=== PATIENT | female | born 1985 | race Caucasian/White ===

== ENCOUNTER → 2016-10-12 | Outpatient (CLI) | payer OTHER ==
--- NOTE | 2016-10-12 13:16 | REP ---
Soft-tissue ultrasound left lower extremity: History: Lump in the left carr at mid calf level with pain and bruising. Findings: Scanning in the area of palpable lump over the left carr demonstrates a 1.2 x 1.0 x 0.5 cm hypoechoic area just superficial to the tibia. There is no Doppler evidence of internal flow. Impression: Nonspecific hypoechoic 1.2 cm nodule anterior to the tibia. This is nonspecific. It may be hematoma, fat necrosis, or other lesion. Clinical followup suggested. Signed by Michael Hoover MD 10/12/2016 01:19 P
== END ==
LOC: M LRY 11:22
PROVIDERS: ATTEND Nurse Practitioner Family
DX: R22.42 Localized swelling, mass and lump, left lower limb (principal)

== ENCOUNTER → 2016-10-13 | Outpatient (REF) | payer OTHER, MEDICAID ==
[2016-10-13 14:11] LABS: MEAN CORPUSCULAR HEMOGLOBIN 28.7 pg (27.0-33.0); MEAN CORPUSCULAR HGB CONC 34.5 g/dl (32.0-36.5); RED CELL DISTRIBUTION WIDTH 12.6 % (11.5-14.5); WHITE BLOOD COUNT 5.2 K/mm3 (4.0-10.0)
[2016-10-13 14:20] LABS: INR 1.12
[2016-10-13 14:26] LABS: FERRITIN 9 NG/ML (8-252); VITAMIN B12 LEVEL 228 PG/ML (247-911)
== END ==
LOC: M SFHCLERA 11:00
PROVIDERS: ATTEND Physician Assistant
DX: Z98.890 Other specified postprocedural states (principal); I80.02 Phlebitis and thrombophlebitis of superficial vessels of left lower extremity; R23.8 Other skin changes

== ENCOUNTER 2018-04-24 13:58 | Emergency (ER) | payer OTHER, MEDICAID | END 2018-04-24 19:50 | disposition home or self-care (01) | LOC: M ED 13:58 | DX: N83.201 Unspecified ovarian cyst, right side (principal); G62.9 Polyneuropathy, unspecified; Z88.2 Allergy status to sulfonamides | CPT/HCPCS: 76856 ==

== ENCOUNTER 2018-04-25 13:35 | Day surgery (SDC) | payer OTHER ==
[2018-04-25] MEDS ORDERED: ceFAZolin 1GM INJ (J0690 PER 500MG) As Ordered (14:37)
[2018-04-25] MEDS ORDERED: LR 1,000 ML IV ×3 (14:45→22:00)
[2018-04-25 14:55] LABS: HEMATOCRIT 38.7 % (36.0-47.0); HEMOGLOBIN 12.8 g/dl (12.0-15.5); MEAN CORPUSCULAR HEMOGLOBIN 25.9 pg (27.0-33.0); MEAN CORPUSCULAR HGB CONC 33.1 g/dl (32.0-36.5); MEAN CORPUSCULAR VOLUME 78.2 fl (80.0-96.0); PLATELET COUNT, AUTOMATED 219 10^3/uL (150-450); RED BLOOD COUNT 4.95 10^6/uL (4.00-5.40); RED CELL DISTRIBUTION WIDTH 12.6 % (11.5-14.5); WHITE BLOOD COUNT 3.2 10^3/uL (4.0-10.0)
[2018-04-25] MEDS: METHYLENE BLUE 0.5% (5MG/ML) 10 ML AMP (PROVAYBLUE)(Q9968 PER 1MG) As Ordered (18:35)
[2018-04-25] MEDS ORDERED: ACETAMINOPHEN 650 MG SUPP As Ordered (18:35)
[2018-04-25] MEDS ORDERED: ROCURONIUM BROMIDE 50 MG/5 ML VIAL As Ordered (18:53)
[2018-04-25] MEDS ORDERED: dexameTHASONE 4 MG/ML 1ML VIAL (J1100) As Ordered (18:53)
[2018-04-25] MEDS ORDERED: PROPOFOL 200 MG/20 ML VIAL As Ordered (18:53)
[2018-04-25] MEDS ORDERED: ONDANSETRON 4MG/2ML VIAL (J2405) As Ordered (18:53)
[2018-04-25] MEDS ORDERED: KETOROLAC 60 MG/2 ML VIAL (J1885) As Ordered (18:53)
[2018-04-25] MEDS ORDERED: LIDOCAINE 2% INJ 100 MG/5 ML SDV (FOR ANES.) As Ordered (18:53)
[2018-04-25] MEDS ORDERED: MIDAZOLAM INJ 2 MG/2 ML VIAL (J2250) As Ordered (18:54)
[2018-04-25] MEDS ORDERED: fentaNYL 250 MCG/5 ML INJECTION (J3010) As Ordered (18:54)
[2018-04-25] MEDS: ACETAMINOPHEN 650 MG SUPP PR (20:20)
[2018-04-25] MEDS ORDERED: SUGAMMADEX SODIUM 500 MG/5 ML VIAL (BRIDION) As Ordered (20:39)
[2018-04-25] MEDS: BUPIVACAINE/EPIN 0.25% 30 ML VIAL As Ordered (21:24)
[2018-04-25] MEDS ORDERED: METOCLOPRAMIDE INJ 10MG/2ML VIAL (J2765) IV (21:30)
[2018-04-25] MEDS ORDERED: HYDROMORPHONE HCL 0.5 MG/ 0.5 ML SYRINGE (J1170 PER 1) IV (21:30)
[2018-04-25] MEDS ORDERED: fentaNYL 100 MCG/2 ML INJECTION (J3010) IV (21:30)
[2018-04-25] MEDS ORDERED: PERCOCET 5MG/325MG TAB PO ×2 (21:30→22:00)
[2018-04-25] MEDS: ONDANSETRON 4MG/2ML VIAL (J2405) IV (22:00)
[2018-04-26] MEDS ORDERED: SIMETHICONE 80 MG CHEW TAB PO
[2018-04-26] MEDS ORDERED: ACETAMINOPHEN 500 MG TAB PO
== END 2018-04-25 23:29 | disposition home or self-care (01) ==
LOC: M SDC 23:29
DX: N83.291 Other ovarian cyst, right side (principal); M12.9 Arthropathy, unspecified; Z88.2 Allergy status to sulfonamides; Z98.84 Bariatric surgery status; Z98.51 Tubal ligation status
CPT/HCPCS: 58661

== ENCOUNTER 2023-12-22 14:04 | Outpatient (CLI) | payer OTHER ==
[~2023-12-22] VITALS: Ht 160 cm; Wt 72.7 kg
[~2023-12-22 14:04] MED LIST: ALBUTEROL SULFATE 2.5MG/0.5ML INH NEB SOLN INH PRN; EPINEPHrine INJ 1 MG/ML 1ML AMP IM PRN; NS 1,000 ML IV SCH; diphenhydrAMINE 50MG/ML VIAL IV PRN; medical marijuana; methylPREDNISolone 125MG 2ML VIAL IV PRN
[2023-12-22] MEDS: IRON SUCROSE 300 MG in NS 250 ML IV ONE (14:37)
[2023-12-22] MEDS ORDERED: LEVO125T41 PO (14:39)
[2023-12-22 14:45] VITALS: BP 118/56; O2SAT 99
[2023-12-22 16:11] VITALS: BP 115/62; O2SAT 100
== END 2023-12-22 16:15 | disposition home or self-care (01) ==
LOC: M INFU 14:04
PROVIDERS: ATTEND Internal Medicine Hematology
DX: D50.9 Iron deficiency anemia, unspecified (principal); Z88.2 Allergy status to sulfonamides
CPT/HCPCS: 96365; 96366; J1756

== ENCOUNTER 2023-12-29 14:30 | Outpatient (CLI) | payer OTHER ==
[~2023-12-29] VITALS: Ht 160 cm; Wt 72.7 kg
[2023-12-29 14:10] VITALS: BP 105/59; O2SAT 100
[~2023-12-29 14:30] MED LIST changes: +LEVO125T41 PO
[2023-12-29] MEDS: IRON SUCROSE 300 MG in NS 250 ML IV ONE (14:55)
[2023-12-29 16:50] VITALS: BP 119/67; O2SAT 98
== END 2023-12-29 17:00 ==
LOC: M INFU 14:30
PROVIDERS: ATTEND Internal Medicine Hematology
DX: D50.9 Iron deficiency anemia, unspecified (principal); Z88.2 Allergy status to sulfonamides
CPT/HCPCS: 96365; 96366; J1756

== ENCOUNTER 2024-04-11 14:50 | Outpatient (CLI) | payer OTHER ==
[~2024-04-11] VITALS: Ht 160 cm; Wt 80.0 kg
[2024-04-11 14:45] VITALS: BP 109/59; O2SAT 100
[2024-04-11] MEDS: IRON SUCROSE 200 MG in NS 100 ML IV ONE (15:18)
[2024-04-11 16:20] VITALS: BP 120/66; O2SAT 100
== END 2024-04-11 16:20 ==
LOC: M INFU 14:50
PROVIDERS: ATTEND Internal Medicine Hematology
DX: D50.9 Iron deficiency anemia, unspecified (principal); Z88.2 Allergy status to sulfonamides
CPT/HCPCS: 96365; J1756

== ENCOUNTER 2024-04-18 11:10 | Outpatient (CLI) | payer OTHER ==
[~2024-04-18] VITALS: Ht 160 cm; Wt 80.0 kg
[2024-04-18 11:15] VITALS: BP 102/57; O2SAT 100
[2024-04-18] MEDS: IRON SUCROSE 200 MG in NS 100 ML IV ONE (11:40)
[2024-04-18 12:35] VITALS: BP 108/53; O2SAT 100
== END 2024-04-18 12:40 ==
LOC: M INFU 11:10
PROVIDERS: ATTEND Internal Medicine Hematology
DX: D50.9 Iron deficiency anemia, unspecified (principal); Z88.2 Allergy status to sulfonamides
CPT/HCPCS: 96365; J1756

== ENCOUNTER 2024-08-13 15:38 | Outpatient (CLI) | payer OTHER, SELFPAY ==
[~2024-08-13] VITALS: Ht 160 cm; Wt 72.7 kg
[~2024-08-13 15:38] MED LIST changes: -NS 1,000 ML IV SCH
[2024-08-13 16:05] VITALS: BP 121/61; O2SAT 100
[2024-08-13] MEDS: IRON SUCROSE 200 MG IVP IV ONE (16:11)
[2024-08-13 16:39] VITALS: BP 113/64; O2SAT 100
== END 2024-08-13 16:45 ==
LOC: M INFU 15:38
PROVIDERS: ATTEND Internal Medicine Hematology
DX: D50.9 Iron deficiency anemia, unspecified (principal); Z88.2 Allergy status to sulfonamides
CPT/HCPCS: 96374; J1756

== ENCOUNTER 2024-08-20 16:15 | Outpatient (CLI) | payer OTHER ==
[~2024-08-20] VITALS: Ht 160 cm; Wt 72.7 kg
[2024-08-20 16:15] VITALS: BP 88/52; O2SAT 100
[2024-08-20] MEDS: IRON SUCROSE 200 MG IVP IV ONE (16:23)
[2024-08-20 16:51] VITALS: BP 122/70; O2SAT 99
== END 2024-08-20 16:53 ==
LOC: M INFU 16:15
PROVIDERS: ATTEND Internal Medicine Hematology
DX: D50.9 Iron deficiency anemia, unspecified (principal); Z88.2 Allergy status to sulfonamides
CPT/HCPCS: 96374; J1756

== ENCOUNTER 2024-08-27 16:02 | Outpatient (CLI) | payer OTHER, SELFPAY ==
[~2024-08-27] VITALS: Ht 160 cm; Wt 72.7 kg
[2024-08-27 16:20] VITALS: BP 124/70; O2SAT 98
[2024-08-27] MEDS: IRON SUCROSE 200 MG IVP IV ONE (16:26)
[2024-08-27 16:57] VITALS: BP 102/63; O2SAT 100
== END 2024-08-27 16:58 ==
LOC: M INFU 16:02
PROVIDERS: ATTEND Internal Medicine Hematology
DX: D50.9 Iron deficiency anemia, unspecified (principal); Z88.2 Allergy status to sulfonamides
CPT/HCPCS: 96374; J1756